=== PATIENT | female | born 1960 | race Caucasian/White ===

== ENCOUNTER 2017-02-25 11:14 | Emergency (ER) | payer OTHER ==
[~2017-02-25] VITALS: Ht 162.6 cm; Wt 115.7 kg
[~2017-02-25 11:14] MED LIST: ADVAIR 100-501 EACH INH; CEPHALEXIN; GILPIZIDE; LIPITOR; PREDNISONE 20 M20 MG PO; PROAIR HFA8.5 GM IH
[2017-02-25] MEDS ORDERED: ACCUNEB SO1.25 MG/1 (11:31)
[2017-02-25] MEDS ORDERED: BREO ELLIPTA 11 EACH INH (11:31)
[2017-02-25] MEDS ORDERED: DOXYCYCLINE 10100 MG PO (11:32)
[2017-02-25] MEDS ORDERED: AMARYL2 MG PO (11:33)
[2017-02-25] MEDS ORDERED: ACCUNEB SO1.25 MG/1 INH (12:53)
[2017-02-25 13:16] VITALS: BP 126/84
== END 2017-02-25 13:18 | disposition home or self-care (01) ==
LOC: ER 11:14
DX: J45.901 Unspecified asthma with (acute) exacerbation (principal); E11.9 Type 2 diabetes mellitus without complications; F10.99 Alcohol use, unspecified with unspecified alcohol-induced disorder; Z79.4 Long term (current) use of insulin; Z88.1 Allergy status to other antibiotic agents; Z91.041 Radiographic dye allergy status; Z88.8 Allergy status to other drugs, medicaments and biological substances

== ENCOUNTER 2017-06-14 06:07 | Emergency (ER) | payer OTHER ==
[~2017-06-14] VITALS: Ht 162.6 cm; Wt 124.7 kg
[~2017-06-14 06:07] MED LIST changes: +ACCUNEB SO1.25 MG/1; +ACCUNEB SO1.25 MG/1 INH; +AMARYL2 MG PO; +BREO ELLIPTA 11 EACH INH; +DOXYCYCLINE 10100 MG PO
[2017-06-14 06:26] LABS: URINE BILIRUBIN NEGATIVE (Negative); URINE BLOOD NEGATIVE (Negative); URINE CLARITY CLEAR; URINE COLOR YELLOW; URINE GLUCOSE-RANDOM* 1+ (Negative); URINE KETONES NEGATIVE (Negative); URINE LEUKOCYTES-REFLEX NEGATIVE (Negative); URINE NITRITE-REFLEX NEGATIVE (Negative); URINE PROTEIN (DIPSTICK) NEGATIVE (Negative); URINE SPECIFIC GRAVITY >= 1.030 (1.005-1.035); URINE UROBILINOGEN 0.2 E.U./dl (0.2-1.0)
[2017-06-14 07:01] LABS: ABSOLUTE NEUTROPHILS 5.5 thou/uL (1.4-8.2); BASOPHILS 0.5 % (0.0-2.0); EOSINOPHILS 3.4 % (0.0-3.0); HEMATOCRIT 44.2 % (37.0-47.0); HEMOGLOBIN 14.8 gm/dL (12.0-15.0); MCH 27.7 pg (26.0-34.0); MCHC 33.5 g/dL (28.0-37.0); MCV 82.5 fL (80.0-100.0); MONOCYTES 5.3 % (1.0-8.0); PLATELET COUNT 172 thou/uL (150-400); POLYS 72.8 % (36.0-66.0); RBC 5.35 mil/uL (4.20-5.00); RDW 13.6 % (10.5-14.5); WBC 7.6 thou/uL (4.0-11.0)
[2017-06-14 07:10] LABS: CALCIUM 8.8 mg/dL (8.5-10.1); CREATININE 0.9 mg/dL (0.6-1.0); POTASSIUM 4.6 mmol/L (3.5-5.1)
[2017-06-14 07:17] LABS: DIRECT BILIRUBIN 0.1 mg/dL (<0.1-0.3); TOTAL BILIRUBIN 0.4 mg/dL (<0.1-1.0); TOTAL PROTEIN 6.4 g/dL (6.4-8.2)
[2017-06-14] MEDS ORDERED: ULTRAM 50MG TAB50 MG PO (09:25)
== END 2017-06-14 09:43 | disposition home or self-care (01) ==
LOC: ER 06:07
PROVIDERS: Emergency Medicine
DX: R10.9 Unspecified abdominal pain (principal); J45.909 Unspecified asthma, uncomplicated; E11.9 Type 2 diabetes mellitus without complications; Z88.1 Allergy status to other antibiotic agents; Z88.8 Allergy status to other drugs, medicaments and biological substances; Z91.041 Radiographic dye allergy status